=== PATIENT | female | born 1955 | race African-American/Black ===

== ENCOUNTER 2018-06-11 02:53 | Inpatient (IN) | payer MEDICAID ==
[~2018-06-11] VITALS: Ht 167.6 cm; Wt 105.3 kg
[~2018-06-11 02:53] MED LIST: ABIL10 PO; ALBU2.5V13 NEB; ATOR10TA69 PO; CARV12.545 PO; FURO40TA5 PO; GABA-533 PO; HYDR-4094 MT; LANS30CA55 PO; LEVA15HF4 IH; LISI1TAB9 PO; LORA10TA7 PO; MONT10TA24 PO; P20 PO; POTA10TA15 PO
[2018-06-11] MEDS ORDERED: ONDANSETRON HCL 4MG/2ML INJ IV STA (03:00)
[2018-06-11] MEDS ORDERED: NITROGLYCERIN OINT 1GM/INCH UDPKT TD ONE (03:00)
[2018-06-11 03:23] LABS: BG BASE EXCESS 1.2 mmol/L (-2.0-2.0); BG BILEVEL POS AIRWAY PRESSURE 18/5; BG CARBOXYHEMOGLOBIN 1.7 % (0.5-1.5); BG DEOXYHEMOGLOBIN 1.2 % (0.0-5.0); BG FRACTION INSPIRED OXYGEN 50; BG HCO3 ACT 25.9 mmol/L (22.0-26.0); BG METHEMOGLOBIN 0.3 % (0.0-1.5); BG OXYGEN SATURATION 98.8 % (92.0-98.5); BG OXYHEMOGLOBIN 96.8 % (94.0-97.0); BG PCO2 41.6 mmHg (35.0-45.0); BG PH 7.412 (7.350-7.450); BG PO2 194.1 mmHg (75.0-100.0); BG SAMPLE SITE RIGHT RADIAL; BG TOTAL HEMOGLOBIN 12.3 g/dL (12.0-18.0); BG VENT MODE MASK - BIPAP
[2018-06-11 03:25] LABS: BASOPHILS % 0.4 % (0.0-2.0); EOSINOPHILS % 3.5 % (0.0-5.0); HEMATOCRIT. 37.9 % (36.0-48.0); HEMOGLOBIN. 12.2 g/dL (12.0-16.0); LYMPHOCYTES % 24.4 % (20.0-50.0); MEAN CORPUSCULAR HEMOGLOBIN 22.3 pg (28.0-32.0); MEAN CORPUSCULAR VOLUME 69.4 fL (81.0-99.0); MEAN PLATELET VOLUME 7.7 fl (7.4-10.4); MONOCYTES % 7.8 % (2.0-8.0); NEUTROPHILS % 63.9 % (40.0-76.0); PLATELET 309 x1000/uL (130-400); RED BLOOD CELL COUNT 5.46 mill/uL (4.2-5.4); RED CELL DISTRIBUTION WIDTH 20.2 % (11.6-14.6)
[2018-06-11] MEDS ORDERED: IPRATROPIUM BROMIDE (0.02%) 0.5MG/2.5ML NEB HHN STA (03:31)
[2018-06-11] MEDS ORDERED: ALBUTEROL (0.083%) 2.5MG/3ML NEB HHN STA (03:31)
[2018-06-11 03:32] LABS: CHLORIDE 104 mEq/L (98-107)
[2018-06-11 04:43] LABS: PLATELET ESTIMATE NORMAL
[2018-06-11 08:15] VITALS: BP 134/70
[2018-06-11] MEDS ORDERED: ONDANSETRON HCL 4MG/2ML INJ IV PRN (08:30)
[2018-06-11] MEDS ORDERED: HYDRALAZINE 20MG/ML VIAL IV PRN (08:30)
[2018-06-11] MEDS ORDERED: DOCUSATE SODIUM 100MG CAPSULE PO PRN (08:30)
[2018-06-11] MEDS ORDERED: ENOXAPARIN 40MG/0.4ML SYR SUBCUT SCH (08:30)
[2018-06-11] MEDS ORDERED: HYDROMORPHONE HCL/PF 2MG/ML CPJ IV PRN (08:30)
[2018-06-11] MEDS ORDERED: IPRATROPIUM/ALBUTEROL 0.5-3(2.5)MG/3ML NEB INH PRN (08:30)
[2018-06-11] MEDS ORDERED: CLONIDINE 0.1MG TABLET PO PRN ×2 (08:30→15:30)
[2018-06-11] MEDS ORDERED: DIPHENHYDRAMINE 50MG/ML VIAL IV PRN (08:30)
[2018-06-11] MEDS ORDERED: MAGNESIUM/ALUMINUM HYDROXIDE/SIMETHICONE 30ML UDC PO PRN (08:30)
[2018-06-11] MEDS ORDERED: LORAZEPAM 2MG/ML CPJ IV PRN (08:30)
[2018-06-11] MEDS ORDERED: DEXTROSE 50% WATER 50ML SYRINGE IV PRN (08:30)
[2018-06-11] MEDS ORDERED: ACETAMINOPHEN 325MG TABLET PO PRN (08:30)
[2018-06-11] MEDS ORDERED: GUAIFENESIN 200MG/10ML SUGAR FREE UDC PO PRN (08:30)
[2018-06-11] MEDS: BLOOD SUGAR DIAGNOSTIC STRIP TEST SCH ×4 (09:00→21:03)
[2018-06-11] MEDS ORDERED: INSLIS SUBCUT (10:37)
[2018-06-11] MEDS ORDERED: INSU100V34 SQ (10:37)
[2018-06-11 12:00] VITALS: BP 158/82
[2018-06-11] MEDS ORDERED: NON FORMULARY PATIENT HOME MED SUBCUT SCH (12:15)
[2018-06-11] MEDS: ENOXAPARIN 30MG/0.3ML SYR SUBCUT SCH ×2 (13:25→20:32)
[2018-06-11] MEDS: SODIUM CHLORIDE 0.9% INJ 3ML FLUSH IVF SCH ×2 (13:25→22:06)
[2018-06-11] MEDS ORDERED: BENZONATATE 100MG CAPSULE PO PRN (15:15)
[2018-06-11] MEDS ORDERED: AZITHROMYCIN 500 MG TABLET PO NR (15:15)
[2018-06-11] MEDS ORDERED: CLONIDINE 0.2MG TABLET PO PRN (15:30)
[2018-06-11 16:00] VITALS: BP 139/77
[2018-06-11 16:19] LABS: CREATINE KINASE MB FRACTION 1.4 ng/mL (0.5-3.6)
[2018-06-11] MEDS: FUROSEMIDE 40MG TABLET PO SCH (16:29)
[2018-06-11] MEDS: AMLODIPINE 2.5MG TABLET PO SCH ×2 (16:29→20:32)
[2018-06-11] MEDS: HYDROCODONE/ACETAMINOPHEN 10/325MG TABLET PO PRN ×2 (16:38→20:39)
[2018-06-11] MEDS: INSULIN LISPRO (HIGH DOSE) 100 UNITS/ML SUBCUT SCH ×2 (18:02→20:36)
[2018-06-11 20:00] VITALS: BP 130/73
[2018-06-11] MEDS: IPRATROPIUM/ALBUTEROL 0.5-3(2.5)MG/3ML NEB HHN SCH (20:16)
[2018-06-11] MEDS: GUAIFENESIN 600MG ER TABLET PO SCH (20:32)
[2018-06-11 20:41] LABS: *AMPHETAMINES SCREEN URINE NEGATIVE (NEGATIVE); *BARBITURATES SCREEN URINE NEGATIVE (NEGATIVE); *BENZODIAZEPINES SCREEN URINE NEGATIVE (NEGATIVE); *COCAINE SCREEN URINE NEGATIVE (NEGATIVE)
[2018-06-11 20:42] LABS: CANNABINOID URINE SCREEN NEGATIVE (NEGATIVE); METHADONE URINE SCREEN NEGATIVE (NEGATIVE); OPIATES URINE SCREEN PRESUMTIVE POSITIVE (NEGATIVE); PHENCYCLIDINE URINE SCREEN NEGATIVE (NEGATIVE)
[2018-06-11] MEDS: METHYLPREDNISOLONE SOD SUCC 125 MG/2 ML VIAL IV SCH (22:07)
[2018-06-11] MEDS: GUAIFENESIN 200MG/10ML SUGAR FREE UDC PO PRN (22:13)
[2018-06-12] VITALS: BP 136/76
[2018-06-12] MEDS: IPRATROPIUM/ALBUTEROL 0.5-3(2.5)MG/3ML NEB HHN SCH ×5 (00:31→20:23)
[2018-06-12 04:00] VITALS: BP 114/63
[2018-06-12] MEDS: METHYLPREDNISOLONE SOD SUCC 125 MG/2 ML VIAL IV SCH (05:53)
[2018-06-12] MEDS: SODIUM CHLORIDE 0.9% INJ 3ML FLUSH IVF SCH ×3 (05:54→21:51)
[2018-06-12] MEDS: BLOOD SUGAR DIAGNOSTIC STRIP TEST SCH ×4 (05:54→21:53)
[2018-06-12] MEDS: INSULIN LISPRO (HIGH DOSE) 100 UNITS/ML SUBCUT SCH ×4 (06:18→22:03)
[2018-06-12 06:46] LABS: BASOPHILS % 0.2 % (0.0-2.0); EOSINOPHILS % 0.5 % (0.0-5.0); HEMATOCRIT. 35.7 % (36.0-48.0); HEMOGLOBIN. 11.1 g/dL (12.0-16.0); MEAN CORPUSCULAR HEMOGLOBIN 22.3 pg (28.0-32.0); MEAN CORPUSCULAR VOLUME 71.7 fL (81.0-99.0); MEAN PLATELET VOLUME 7.9 fl (7.4-10.4); MONOCYTES % 3.4 % (2.0-8.0); NEUTROPHILS % 85.9 % (40.0-76.0); PLATELET 246 x1000/uL (130-400); RED BLOOD CELL COUNT 4.98 mill/uL (4.2-5.4); RED CELL DISTRIBUTION WIDTH 19.9 % (11.6-14.6)
[2018-06-12 07:07] LABS: CHLORIDE 103 mEq/L (98-107)
[2018-06-12 07:23] LABS: HDL CHOLESTEROL 41 mg/dL (40-59)
[2018-06-12 07:24] LABS: LDL CHOLESTEROL 92 mg/dL (5-100)
[2018-06-12 07:26] LABS: CREATINE KINASE 50 IU/L (26-192); CREATINE KINASE MB FRACTION 1.2 ng/mL (0.5-3.6)
[2018-06-12 07:27] LABS: T4 FREE 1.13 ng/dL (0.76-1.46)
[2018-06-12 08:00] VITALS: BP 152/90
[2018-06-12] MEDS: AMLODIPINE 2.5MG TABLET PO SCH (09:23)
[2018-06-12] MEDS: ENOXAPARIN 30MG/0.3ML SYR SUBCUT SCH ×2 (09:23→21:52)
[2018-06-12] MEDS: AZITHROMYCIN 250 MG TABLET PO SCH (09:23)
[2018-06-12] MEDS: GUAIFENESIN 600MG ER TABLET PO SCH ×2 (09:23→21:52)
[2018-06-12] MEDS: FUROSEMIDE 40MG TABLET PO SCH (09:23)
[2018-06-12 12:00] VITALS: BP 155/79
[2018-06-12] MEDS ORDERED: INSULIN LISPRO 100 UNITS/ML SUBCUT SCH (13:15)
[2018-06-12] MEDS ORDERED: INSULIN GLARGINE UD 100 UNITS/ML SYR SUBCUT SCH (14:30)
[2018-06-12 15:00] VITALS: BP_SYST 120; BP_SYST 146; BP_DIAS 60; BP_DIAS 75
[2018-06-12] MEDS: POTASSIUM CHLORIDE 20MEQ TABLET SR PO SCH (16:40)
[2018-06-12] MEDS: FUROSEMIDE 40MG/4ML VIAL IVP SCH ×2 (16:40→17:00)
[2018-06-12] MEDS: PREDNISONE 20MG TABLET PO SCH (18:29)
[2018-06-12] MEDS: HYDROCODONE/ACETAMINOPHEN 10/325MG TABLET PO PRN (18:59)
[2018-06-12 20:00] VITALS: BP 125/59
[2018-06-12] MEDS: AMLODIPINE 5MG TABLET PO SCH (21:52)
[2018-06-13] VITALS: BP 129/66
[2018-06-13] MEDS: IPRATROPIUM/ALBUTEROL 0.5-3(2.5)MG/3ML NEB HHN SCH ×7 (00:34→20:45)
[2018-06-13 04:00] VITALS: BP 131/69
[2018-06-13] MEDS: BLOOD SUGAR DIAGNOSTIC STRIP TEST SCH ×4 (05:56→21:00)
[2018-06-13] MEDS: SODIUM CHLORIDE 0.9% INJ 3ML FLUSH IVF SCH ×3 (05:56→22:00)
[2018-06-13] MEDS: PREDNISONE 20MG TABLET PO SCH ×2 (06:21→18:24)
[2018-06-13] MEDS: INSULIN LISPRO (HIGH DOSE) 100 UNITS/ML SUBCUT SCH ×4 (06:24→21:00)
[2018-06-13 07:33] LABS: BASOPHILS % 0.2 % (0.0-2.0); EOSINOPHILS % 0.1 % (0.0-5.0); HEMATOCRIT. 34.3 % (36.0-48.0); HEMOGLOBIN. 10.9 g/dL (12.0-16.0); LYMPHOCYTES % 9.3 % (20.0-50.0); MEAN CORPUSCULAR VOLUME 69.4 fL (81.0-99.0); MONOCYTES % 8.2 % (2.0-8.0); NEUTROPHILS % 82.2 % (40.0-76.0); PLATELET 293 x1000/uL (130-400); RED BLOOD CELL COUNT 4.95 mill/uL (4.2-5.4); RED CELL DISTRIBUTION WIDTH 19.7 % (11.6-14.6)
[2018-06-13 08:00] VITALS: BP 122/63
[2018-06-13 08:01] LABS: CHLORIDE 98 mEq/L (98-107)
[2018-06-13] MEDS: FUROSEMIDE 40MG/4ML VIAL IVP SCH ×2 (08:44→18:24)
[2018-06-13] MEDS: POTASSIUM CHLORIDE 20MEQ TABLET SR PO SCH (08:45)
[2018-06-13] MEDS: AMLODIPINE 5MG TABLET PO SCH ×2 (08:45→21:34)
[2018-06-13] MEDS: AZITHROMYCIN 250 MG TABLET PO SCH (08:45)
[2018-06-13] MEDS: GUAIFENESIN 600MG ER TABLET PO SCH ×2 (08:45→21:34)
[2018-06-13] MEDS: ENOXAPARIN 30MG/0.3ML SYR SUBCUT SCH ×2 (08:45→21:36)
[2018-06-13] MEDS ORDERED: INSULIN GLARGINE UD 100 UNITS/ML SYR SUBCUT SCH (09:00)
[2018-06-13] MEDS: INSULIN GLARGINE UD 100 UNITS/ML SYR SUBCUT SCH (10:00)
[2018-06-13 12:00] VITALS: BP 144/88
[2018-06-13 16:00] VITALS: BP 144/75
[2018-06-13] MEDS ORDERED: INSULIN GLARGINE UD 100 UNITS/ML SYR SUBCUT NR (17:00)
[2018-06-13 20:00] VITALS: BP 125/86
[2018-06-13] MEDS: BUDESONIDE 0.5MG/2ML NEB HHN SCH (20:45)
[2018-06-13] MEDS: GUAIFENESIN 200MG/10ML SUGAR FREE UDC PO PRN (21:37)
[2018-06-14] VITALS: BP 122/69
[2018-06-14] MEDS: IPRATROPIUM/ALBUTEROL 0.5-3(2.5)MG/3ML NEB HHN SCH ×6 (00:47→21:54)
[2018-06-14 04:00] VITALS: BP 125/55
[2018-06-14] MEDS: SODIUM CHLORIDE 0.9% INJ 3ML FLUSH IVF SCH ×3 (06:00→21:10)
[2018-06-14] MEDS: BLOOD SUGAR DIAGNOSTIC STRIP TEST SCH ×4 (07:13→21:10)
[2018-06-14] MEDS: INSULIN LISPRO (HIGH DOSE) 100 UNITS/ML SUBCUT SCH ×4 (07:45→21:11)
[2018-06-14 08:00] VITALS: BP 152/86
[2018-06-14] MEDS: PREDNISONE 20MG TABLET PO SCH (08:17)
[2018-06-14] MEDS: ENOXAPARIN 30MG/0.3ML SYR SUBCUT SCH ×2 (09:23→21:09)
[2018-06-14] MEDS: AMLODIPINE 5MG TABLET PO SCH ×2 (09:23→21:09)
[2018-06-14] MEDS: GUAIFENESIN 200MG/10ML SUGAR FREE UDC PO PRN ×2 (09:23→17:51)
[2018-06-14] MEDS: POTASSIUM CHLORIDE 20MEQ TABLET SR PO SCH (09:23)
[2018-06-14] MEDS: GUAIFENESIN 600MG ER TABLET PO SCH ×2 (09:23→21:10)
[2018-06-14] MEDS: FUROSEMIDE 40MG/4ML VIAL IVP SCH ×2 (09:23→17:51)
[2018-06-14] MEDS: AZITHROMYCIN 250 MG TABLET PO SCH (09:26)
[2018-06-14] MEDS: INSULIN GLARGINE UD 100 UNITS/ML SYR SUBCUT SCH (09:55)
[2018-06-14] MEDS: BUDESONIDE 0.5MG/2ML NEB HHN SCH ×2 (11:26→21:54)
[2018-06-14 12:00] VITALS: BP 129/96
[2018-06-14] MEDS ORDERED: INSULIN GLARGINE UD 100 UNITS/ML SYR SUBCUT NR (14:30)
[2018-06-14 16:00] VITALS: BP 122/64
[2018-06-14] MEDS ORDERED: INSULIN LISPRO 100 UNITS/ML SUBCUT ONE (18:15)
[2018-06-14] MEDS ORDERED: INSULIN LISPRO 100 UNITS/ML SUBCUT NR ×2 (18:38→21:00)
[2018-06-14 20:00] VITALS: BP 142/67
[2018-06-14] MEDS: CARVEDILOL 6.25 MG TABLET PO SCH (21:10)
[2018-06-14] MEDS ORDERED: INSULIN GLARGINE UD 100 UNITS/ML SYR SUBCUT ONE (22:00)
[2018-06-15] VITALS: BP 134/81
[2018-06-15] MEDS: IPRATROPIUM/ALBUTEROL 0.5-3(2.5)MG/3ML NEB HHN SCH ×4 (01:30→08:28)
[2018-06-15 04:00] VITALS: BP 139/83
[2018-06-15] MEDS: SODIUM CHLORIDE 0.9% INJ 3ML FLUSH IVF SCH (06:10)
[2018-06-15] MEDS: BLOOD SUGAR DIAGNOSTIC STRIP TEST SCH (06:10)
[2018-06-15] MEDS: GUAIFENESIN 200MG/10ML SUGAR FREE UDC PO PRN ×2 (06:10→09:30)
[2018-06-15] MEDS: INSULIN LISPRO (HIGH DOSE) 100 UNITS/ML SUBCUT SCH (06:19)
[2018-06-15 06:52] LABS: BASOPHILS % 0.4 % (0.0-2.0); EOSINOPHILS % 1.2 % (0.0-5.0); HEMATOCRIT. 39.6 % (36.0-48.0); HEMOGLOBIN. 12.4 g/dL (12.0-16.0); LYMPHOCYTES % 29.8 % (20.0-50.0); MEAN CORPUSCULAR HEMOGLOBIN 21.9 pg (28.0-32.0); MEAN CORPUSCULAR VOLUME 69.8 fL (81.0-99.0); MEAN PLATELET VOLUME 7.9 fl (7.4-10.4); MONOCYTES % 9.3 % (2.0-8.0); NEUTROPHILS % 59.3 % (40.0-76.0); PLATELET 345 x1000/uL (130-400); RED BLOOD CELL COUNT 5.67 mill/uL (4.2-5.4)
[2018-06-15 07:18] LABS: CHLORIDE 98 mEq/L (98-107)
[2018-06-15 08:00] VITALS: BP 134/76
[2018-06-15] MEDS: BUDESONIDE 0.5MG/2ML NEB HHN SCH (08:28)
[2018-06-15] MEDS ORDERED: PREDNISONE 20MG TABLET PO SCH (09:00)
[2018-06-15] MEDS: POTASSIUM CHLORIDE 20MEQ TABLET SR PO SCH (09:29)
[2018-06-15] MEDS: AMLODIPINE 5MG TABLET PO SCH (09:29)
[2018-06-15] MEDS: CARVEDILOL 6.25 MG TABLET PO SCH (09:30)
[2018-06-15] MEDS: ENOXAPARIN 30MG/0.3ML SYR SUBCUT SCH (09:30)
[2018-06-15] MEDS: FUROSEMIDE 40MG/4ML VIAL IVP SCH (09:30)
[2018-06-15 09:51] VITALS: BP 134/76
[2018-06-15] MEDS ORDERED: INSULIN GLARGINE UD 100 UNITS/ML SYR SUBCUT SCH ×2 (10:00)
== END 2018-06-15 10:13 | disposition home or self-care (01) | DRG 133 ==
LOC: ER 02:53 → EDBEDREQ 05:51 → ENRESERV 07:29 → 5WST 09:01
PROVIDERS: ADMIT Internal Medicine; ATTEND Internal Medicine
PROC: 5A09357 Assistance with Respiratory Ventilation, Less than 24 Consecutive Hours, Continuous Positive Airway Pressure (ICD-10-PCS; principal; 2018-06-11)
DX: J96.00 Acute respiratory failure, unspecified whether with hypoxia or hypercapnia (principal); I50.33 Acute on chronic diastolic (congestive) heart failure; E11.65 Type 2 diabetes mellitus with hyperglycemia; I45.81 Long QT syndrome; I11.0 Hypertensive heart disease with heart failure; J44.1 Chronic obstructive pulmonary disease with (acute) exacerbation; R74.8 Abnormal levels of other serum enzymes; E66.9 Obesity, unspecified; D72.829 Elevated white blood cell count, unspecified; F17.210 Nicotine dependence, cigarettes, uncomplicated; R74.0 Nonspecific elevation of levels of transaminase and lactic acid dehydrogenase [LDH]; T38.0X5A Adverse effect of glucocorticoids and synthetic analogues, initial encounter; F41.9 Anxiety disorder, unspecified; Z86.73 Personal history of transient ischemic attack (TIA), and cerebral infarction without residual deficits; Z88.6 Allergy status to analgesic agent; Z99.81 Dependence on supplemental oxygen; Z79.899 Other long term (current) drug therapy; Z88.0 Allergy status to penicillin; Z90.722 Acquired absence of ovaries, bilateral; Z91.010 Allergy to peanuts; Z68.37 Body mass index [BMI] 37.0-37.9, adult; Y92.89 Other specified places as the place of occurrence of the external cause
CPT/HCPCS: 36415; 36600; 71045; 80048; 80061; 80305; 82375; 82550; 82553; 82805; 82962; 83605; 83735; 83880; 84439; 84443; 84484; 93005; 93306; 93970; 94640; 94660; 96374; 99291; J1650; J1815; J1940; J2405; J2930; J7512; J7611; J7620; J7626

== ENCOUNTER 2018-08-25 09:07 | Inpatient (IN) | payer MEDICAID ==
[~2018-08-25] VITALS: Ht 167.6 cm; Wt 104.3 kg
[~2018-08-25 09:07] MED LIST changes: +INSU100V34 SQ
[2018-08-25 09:35] LABS: BASOPHILS % 0.6 % (0.0-2.0); EOSINOPHILS % 9.3 % (0.0-5.0); HEMATOCRIT. 38.8 % (36.0-48.0); HEMOGLOBIN. 12.5 g/dL (12.0-16.0); LYMPHOCYTES % 19.7 % (20.0-50.0); MEAN CORPUSCULAR HEMOGLOBIN 22.6 pg (28.0-32.0); MEAN CORPUSCULAR VOLUME 70.2 fL (81.0-99.0); MEAN PLATELET VOLUME 7.5 fl (7.4-10.4); NEUTROPHILS % 60.4 % (40.0-76.0); PLATELET 303 x1000/uL (130-400); RED BLOOD CELL COUNT 5.53 mill/uL (4.2-5.4); RED CELL DISTRIBUTION WIDTH 20.4 % (11.6-14.6)
[2018-08-25 09:42] LABS: CHLORIDE 105 mEq/L (98-107)
[2018-08-25 09:44] LABS: PARTIAL THROMBOPLASTIN TIME 26.4 sec (23.4-31.0); PROTHROMBIN TIME 10.7 sec (9.6-11.0)
[2018-08-25] MEDS ORDERED: FUROSEMIDE 20MG/2ML VIAL IVP ONE (09:45)
[2018-08-25 10:38] LABS: CLARITY URINE CLEAR (CLEAR); COLOR URINE YELLOW (YELLOW); KETONES URINE NEGATIVE (NEGATIVE); LEUKOCYTE ESTERASE URINE NEGATIVE (NEGATIVE); NITRITE URINE NEGATIVE (NEGATIVE); OCCULT BLOOD URINE NEGATIVE (NEGATIVE); PH URINE 5.5 (4.5-8.0); PROTEIN URINE NEGATIVE (NEGATIVE); SPECIFIC GRAVITY URINE 1.021 (1.005-1.030)
[2018-08-25] MEDS ORDERED: DIPHENHYDRAMINE 50MG/ML VIAL IV PRN (11:30)
[2018-08-25] MEDS ORDERED: ONDANSETRON HCL 4MG/2ML INJ IV PRN (11:30)
[2018-08-25] MEDS ORDERED: HYDROMORPHONE HCL/PF 2MG/ML CPJ IV PRN (11:30)
[2018-08-25] MEDS ORDERED: GUAIFENESIN 200MG/10ML SUGAR FREE UDC PO PRN (11:30)
[2018-08-25] MEDS ORDERED: IPRATROPIUM/ALBUTEROL 0.5-3(2.5)MG/3ML NEB INH PRN (11:30)
[2018-08-25] MEDS ORDERED: ACETAMINOPHEN 325MG TABLET PO PRN (11:30)
[2018-08-25] MEDS ORDERED: MAGNESIUM/ALUMINUM HYDROXIDE/SIMETHICONE 30ML UDC PO PRN (11:30)
[2018-08-25] MEDS ORDERED: DOCUSATE SODIUM 100MG CAPSULE PO PRN (11:30)
[2018-08-25] MEDS ORDERED: NA PHOS,M-B/NA PHOS,DI-BA ENEMA 118ML PR PRN (11:30)
[2018-08-25] MEDS ORDERED: POTASSIUM CHLORIDE 20MEQ TABLET SR PO ONE (11:30)
[2018-08-25] MEDS ORDERED: LORAZEPAM 2MG/ML CPJ IV PRN (11:30)
[2018-08-25] MEDS ORDERED: CLONIDINE 0.1MG TABLET PO PRN (11:30)
[2018-08-25 12:08] LABS: CHLORIDE 108 mEq/L (98-107)
[2018-08-25] MEDS: SODIUM CHLORIDE 0.45% 1,000 ML IV SCH ×2 (12:16→17:58)
[2018-08-25 14:40] VITALS: BP 134/74
[2018-08-25] MEDS ORDERED: DEXTROSE 50% WATER 50ML SYRINGE IV PRN (17:00)
[2018-08-25] MEDS: BLOOD SUGAR DIAGNOSTIC STRIP TEST SCH ×3 (17:20→21:00)
[2018-08-25] MEDS: INSULIN LISPRO 100 UNITS/ML SUBCUT SCH ×2 (17:50→22:18)
[2018-08-25] MEDS: HYDROCODONE/ACETAMINOPHEN 5/325MG TABLET PO PRN ×2 (17:59→23:37)
[2018-08-25 20:26] VITALS: BP 126/66
[2018-08-25 20:27] VITALS: BP_SYST 132; BP_SYST 137; BP_DIAS 69
[2018-08-25] MEDS: CARVEDILOL 3.125 MG TABLET PO SCH (22:10)
[2018-08-25] MEDS: ATORVASTATIN CALCIUM 10MG TABLET PO SCH (22:10)
[2018-08-25] MEDS: ENOXAPARIN 30MG/0.3ML SYR SUBCUT SCH (22:12)
[2018-08-26 00:37] VITALS: BP 134/63
[2018-08-26 04:00] VITALS: BP 114/66
[2018-08-26] MEDS: BLOOD SUGAR DIAGNOSTIC STRIP TEST SCH ×4 (06:30→20:31)
[2018-08-26] MEDS: HYDROCODONE/ACETAMINOPHEN 5/325MG TABLET PO PRN (06:34)
[2018-08-26] MEDS: INSULIN LISPRO 100 UNITS/ML SUBCUT SCH ×4 (06:35→20:41)
[2018-08-26 08:30] LABS: BASOPHILS % 0.4 % (0.0-2.0); EOSINOPHILS % 11.1 % (0.0-5.0); HEMATOCRIT. 37.3 % (36.0-48.0); LYMPHOCYTES % 24.2 % (20.0-50.0); MEAN CORPUSCULAR HEMOGLOBIN 22.6 pg (28.0-32.0); MEAN CORPUSCULAR VOLUME 70.5 fL (81.0-99.0); MEAN PLATELET VOLUME 7.3 fl (7.4-10.4); MONOCYTES % 10.9 % (2.0-8.0); NEUTROPHILS % 53.4 % (40.0-76.0); PLATELET 273 x1000/uL (130-400); RED CELL DISTRIBUTION WIDTH 20.2 % (11.6-14.6)
[2018-08-26 08:45] LABS: CHLORIDE 107 mEq/L (98-107)
[2018-08-26 08:55] LABS: LDL CHOLESTEROL 85 mg/dL (5-100)
[2018-08-26 08:56] LABS: HDL CHOLESTEROL 27 mg/dL (40-59)
[2018-08-26 09:00] VITALS: BP_SYST 129; BP_SYST 134; BP_SYST 137; BP_DIAS 73; BP_DIAS 77; BP_DIAS 79
[2018-08-26] MEDS: ASPIRIN 81MG EC TABLET PO SCH (09:00)
[2018-08-26] MEDS: CARVEDILOL 3.125 MG TABLET PO SCH ×2 (09:00→20:30)
[2018-08-26] MEDS: ENOXAPARIN 30MG/0.3ML SYR SUBCUT SCH ×2 (10:18→20:31)
[2018-08-26 12:13] VITALS: BP 148/85
[2018-08-26 13:57] LABS: *AMPHETAMINES SCREEN URINE NEGATIVE (NEGATIVE); *BARBITURATES SCREEN URINE NEGATIVE (NEGATIVE); *BENZODIAZEPINES SCREEN URINE NEGATIVE (NEGATIVE); *COCAINE SCREEN URINE NEGATIVE (NEGATIVE); METHADONE URINE SCREEN NEGATIVE (NEGATIVE)
[2018-08-26 13:58] LABS: CANNABINOID URINE SCREEN NEGATIVE (NEGATIVE); OPIATES URINE SCREEN NEGATIVE (NEGATIVE); PHENCYCLIDINE URINE SCREEN NEGATIVE (NEGATIVE)
[2018-08-26] MEDS: SODIUM CHL 0.45% + KCL 20MEQ/L 1,000 ML IV SCH ×2 (14:21→20:31)
[2018-08-26 15:36] VITALS: BP 139/79
[2018-08-26 20:00] VITALS: BP 145/85
[2018-08-26] MEDS: ATORVASTATIN CALCIUM 10MG TABLET PO SCH (20:30)
[2018-08-27] VITALS: BP 136/82
[2018-08-27 04:00] VITALS: BP 129/79
[2018-08-27 06:48] LABS: CHLORIDE 104 mEq/L (98-107)
[2018-08-27 06:52] LABS: BASOPHILS % 0.5 % (0.0-2.0); EOSINOPHILS % 7.4 % (0.0-5.0); HEMATOCRIT. 36.3 % (36.0-48.0); HEMOGLOBIN. 11.8 g/dL (12.0-16.0); LYMPHOCYTES % 26.4 % (20.0-50.0); MEAN CORPUSCULAR HEMOGLOBIN 22.9 pg (28.0-32.0); MEAN CORPUSCULAR VOLUME 70.5 fL (81.0-99.0); MEAN PLATELET VOLUME 7.6 fl (7.4-10.4); MONOCYTES % 11.9 % (2.0-8.0); NEUTROPHILS % 53.8 % (40.0-76.0); PLATELET 254 x1000/uL (130-400); RED BLOOD CELL COUNT 5.15 mill/uL (4.2-5.4); RED CELL DISTRIBUTION WIDTH 19.9 % (11.6-14.6)
[2018-08-27] MEDS: BLOOD SUGAR DIAGNOSTIC STRIP TEST SCH ×2 (06:54→12:06)
[2018-08-27 08:00] VITALS: BP 134/75
[2018-08-27] MEDS: INSULIN LISPRO 100 UNITS/ML SUBCUT SCH ×2 (09:00→13:22)
[2018-08-27] MEDS: ENOXAPARIN 30MG/0.3ML SYR SUBCUT SCH (09:06)
[2018-08-27] MEDS: CARVEDILOL 3.125 MG TABLET PO SCH (09:07)
[2018-08-27] MEDS: ASPIRIN 81MG EC TABLET PO SCH (09:07)
[2018-08-27] MEDS: HYDROCODONE/ACETAMINOPHEN 5/325MG TABLET PO PRN (09:23)
[2018-08-27] MEDS: SODIUM CHL 0.45% + KCL 20MEQ/L 1,000 ML IV SCH (11:30)
[2018-08-27 12:00] VITALS: BP 133/76
[2018-08-27 14:56] VITALS: BP 140/79
== END 2018-08-27 15:20 | disposition home or self-care (01) | DRG 48 ==
LOC: ER 09:07 → 6WST 11:12 → EDBEDREQTM 11:18 → EDBEDREQ 11:18 → ENRESERV 12:58
PROVIDERS: ADMIT Internal Medicine; ATTEND Internal Medicine
DX: G90.8 Other disorders of autonomic nervous system (principal); G93.41 Metabolic encephalopathy; E11.65 Type 2 diabetes mellitus with hyperglycemia; I11.0 Hypertensive heart disease with heart failure; E87.6 Hypokalemia; E66.9 Obesity, unspecified; E86.0 Dehydration; E78.00 Pure hypercholesterolemia, unspecified; E78.5 Hyperlipidemia, unspecified; J44.9 Chronic obstructive pulmonary disease, unspecified; Z79.4 Long term (current) use of insulin; Z79.82 Long term (current) use of aspirin; Z79.899 Other long term (current) drug therapy; Z68.37 Body mass index [BMI] 37.0-37.9, adult; Z88.0 Allergy status to penicillin; Z88.6 Allergy status to analgesic agent; Z91.010 Allergy to peanuts
CPT/HCPCS: 36415; 70544; 70553; 71045; 80048; 80061; 80305; 80320; 82962; 83735; 83880; 84439; 84443; 84484; 93005; 93306; 93880; 96374; 96375; 97116; 97162; 97166; 97530; 99285; J1170; J1650; J1815; J1940; J2405; J3480; G0480